=== PATIENT | male | born 2000 ===

== ENCOUNTER 2023-11-11 02:47 | Emergency (ER) | payer BC, SELFPAY ==
[2023-11-11 03:00] VITALS: BP 112/69
[2023-11-11 03:50] LABS: COVID-19 Antigen Negative (Negative)
[2023-11-11 04:12] VITALS: BP 110/58
[2023-11-11 04:26] VITALS: BMI 28.8
--- NOTE | 2023-11-11 05:06 | ED.GENMED ---
History of Present Illness
General
Chief Complaint: Breathing Problem
Source: patient and family (Mother who is at bedside)
Time Seen by Provider: 11/11/23 04:57
Nursing documentation reviewed up to this point in time: agreed with
History of Present Illness
History of Present Illness:
This is a 23-year-old male with no significant past medical history complains of 7 to 10-day history of cough, mild congestion. He denies fever, denies sore throat. Symptoms had been improving until this evening when he attempted to go running and
upon doing so cough seemed to worsen. Cough has been nonproductive. He admits to mild anterior chest discomfort only noted with coughing.
No leg pain or swelling. No recent travel.
He has been exposed to several coworkers with similar URI symptoms and 1 of which was diagnosed with pneumonia. Patient is concerned for possible pneumonia.
He is a lifelong non-smoker.
No history of asthma nor chronic lung disease.
He takes no medicines on a daily basis.
Past History
Past History
ED Past Medical History: None
ED Past Surgical History: None
Social History
Tobacco: Non-smoker
Living: with family
Employment: Employed
Family History
Family History: Other (Noncontributory)
Phy Exam
Physical Exam
Physical Exam:
GENERAL: 23-year-old male appears his stated age, bright and alert, pleasant, appears in no acute distress. No cough appreciated during exam.
EYE: anicteric
NECK: Supple, nontender, no meningismus, no significant adenopathy.
ENT: posterior pharynx is clear, oral mucosa is moist. TM clear b/l, nares have mildly boggy pale blue turbinates with scant clear rhinorrhea. Moderate cauliflower ear deformity of left superior pinna.
CARDIAC: Regular rate and rhythm. no murmur.
LUNGS: Clear breath sounds bilaterally, no acute respiratory distress, no wheezes/rales/rhonchi
ABDOMEN: Soft, nondistended, without focal tenderness, normoactive BS.
NEUROLOGICAL: Alert and oriented x3, no focal neuro deficits. Gait is owen and steady.
SKIN: Warm and dry, normal color, skin intact. No rash.
MUSCULOSKELETAL: No C/C/E. peripheral pulses are full and equal b/l. No palpable tenderness.
PSYCH: Normal and appropriate interaction.
Scores
Heart Failure Risk
Heart Failure Risk Score: Not Applicable
Course
Orders/Labs/Results
Orders:
Orders
11/11/23 02:50
CXR2 [CR Chest - 2 Views ] Urgent
Comment:
Reason For Exam: shortness of breath.
11/11/23 03:05
COVID-19 Antigen Urgent
Source: Nasal Swab
Vital Signs
Initial and Last Documented VS:
Initial Vital Signs
Temp Pulse Resp BP Pulse Ox
98.9 F 63 17 112/69 97
11/11/23 03:00 11/11/23 03:00 11/11/23 03:00 11/11/23 03:00 11/11/23 03:00
Last Documented Vital Signs
Temp Pulse Resp BP Pulse Ox
98.1 F 64 17 110/58 99
11/11/23 04:12 11/11/23 04:12 11/11/23 03:00 11/11/23 04:12 11/11/23 04:12
MDM/Problems Addressed
Differential Diagnosis Includes:
Patient presents with 7 to 10-day history of URI with increased cough tonight after jogging.
I suspect acute bronchitis, will check chest x-ray to assess for occult pneumonia.
COVID antigen is negative.
No risk factors for immunosuppression, no history of chronic lung disease. No risk factors for thromboembolism.
*Radiology
Radiology exam reviewed: preliminary read by ED provider (Chest x-ray is unremarkable. Clear lung chiang.)
*Pulse Oximetry
Patient hypoxic: no
*Critical Care Note
Total Time (30-74mins, 75-104mins- exclusive of procedures): Not Applicable
Update Note
Update Note:
Chest x-ray is unremarkable, clear lung chiang.
I suspect a resolving bronchitis with an element of reactive airway disease brought on by jogging/running.
Will add albuterol inhaler for as needed cough and may use this just prior to exercise.
He is also noted to have an element of allergic rhinitis on exam and recommend he start a daily antihistamine such as Claritin or Zyrtec.
Discussed importance of remaining well-hydrated on a daily basis.
Prompt follow-up with PCP for recheck.
ED Attending Note
-
Portions of this chart may have been created with voice recognition software.� Occasional wrong word or��sound alike� substitutions may have occurred due to the inherent limitations of voice recognition software.
Discharge Plan
Departure
Patient Disposition: Home (Routine Discharge)
Date of Disposition: 11/11/23
Time of Disposition: 05:08
Patient with high blood pressure during this ER visit?: No
Condition: Good
Discharge Problem:
Acute bronchitis
Instructions: Bronchitis, Adult ED, How to Use a Metered Dose Inhaler ED
Prescriptions:
New
albuterol sulfate 90 mcg/actuation aerosol powdr breath activated
2 inh inhalation Q6H PRN (Reason: cough, shortness of breath) Qty: 1 0RF
No Action
cephalexin 500 mg capsule
500 mg PO BID 7 Days Qty: 14 0RF
Referrals:
UNKNOWN - PT DOES,NOT KNOW [Unknown Provider] -
Activity Restrictions/Additional Instructions:
Stay well-hydrated on a daily basis.
Start a daily antihistamine such as Claritin or Zyrtec, 10 mg once daily.
Use inhaler, 2 puffs 10 to 15 minutes prior to exercise. You can also use this 4 times daily as needed for cough, shortness of breath.
Follow-up with your primary care physician next week for recheck especially if no improvement.
Interventions
Interventions:
*Risk Screen - Suicide Last Done: 11/11/23 02:48
*General Assessment Last Done: 11/11/23 04:12
ED- Fall Risk Assessment Last Done: 11/11/23 02:50
*ED COVID-19 Vaccine History Last Done: 11/11/23 02:50
ED- Cardiac Assessment Last Done: 11/11/23 04:12
ED- Pulmonary Assessment Last Done: 11/11/23 04:12
Discharge Date and Time
Print Language: MACEDONIAN
== END 2023-11-11 05:27 | disposition home or self-care (01) ==
LOC: EMR 02:47
PROVIDERS: EMERGENCY PHYSICIAN Emergency Medicine; FAMILY PHYSICIAN Internal Medicine
DX: J20.9 Acute bronchitis, unspecified (principal)
CPT/HCPCS: 99283; 71046; 87811